=== PATIENT | male | born 1970 | race Caucasian/White ===

== ENCOUNTER 2017-04-07 15:19 | Emergency (ER) | payer MEDICARE, MEDICAID ==
--- NOTE | 2017-04-18 17:59 | ER ---
ADMIT: 04/07/2017 RM/LOC: ER [facility] MR#: [id number] [address] [address] [place] [address] Emergency Room Report SEX: M AGE: 47 : 1970 DATE: 04/07/2017 HISTORY OF PRESENT ILLNESS: The patient is a 47-year-old male, who presents to the emergency room with urinary retention that happened yesterday and he had a urinary catheter in place, and the reason for that was a chronic narcotic use causing constipation, putting pressure, he was unable to pee. So, last night Dr. Robert ordered a catheter and sent him home with followup. He presents now stating that he wants the catheter out because it is hurting. REVIEW OF SYSTEMS: Negative. PAST MEDICAL HISTORY: Cardiac disease, CAD with bypass surgery and stents. SOCIAL HISTORY: He is a smoker, half a pack a day. PHYSICAL EXAMINATION: VITAL SIGNS: Blood pressure 153/85, heart rate 95, temp 99.9, O2 sats 97%. GASTROINTESTINAL: Low abdominal tenderness. Catheter urine seems to be within normal color and he has about 4 mL in the bag. EXTREMITIES: Nontender. SKIN: Good color and turgor. NEURO: Oriented x4. He is advised that the catheter will be removed by nurse but if pain continues and urinary retention continues, he needs to come back, the catheter will be placed back again. CLINICAL IMPRESSION: Urinary catheter removal secondary to urinary retention. FLORES Delacruz / Kevin Winkler MD / modl JOB #: [id number] CC: Kevin Winkler MD, Attending Physician Royce Carrasco MD, Family Physician
== END 2017-04-07 16:40 | disposition home or self-care (01) ==
LOC: ER 15:19
DX: R33.9 Retention of urine, unspecified (principal); Z43.6 Encounter for attention to other artificial openings of urinary tract; F17.210 Nicotine dependence, cigarettes, uncomplicated; I10 Essential (primary) hypertension; Z95.1 Presence of aortocoronary bypass graft; Z95.5 Presence of coronary angioplasty implant and graft

== ENCOUNTER 2017-04-16 06:48 | Emergency (ER) | payer MEDICARE, MEDICAID ==
--- NOTE | 2017-04-16 16:46 | ER ---
ADMIT: 04/16/2017 RM/LOC: ER [facility] MR#: [id number] [id number] [facility] [address] [address] [place] [address] Emergency Room Report SEX: M AGE: 47 : 1970 DATE: 04/16/2017 ADDENDUM: This 47-year-old white male coming with back pain. I think this is recurrent, chronic. X-ray does show old compression fracture in 1988. He also has degenerative joint disease on top of this. He had been on Lortab in the past, however, then he developed urinary retention, constipation and I told him we cannot follow him here, so he needs to be followed up with the pain doctor. We did give him 2 Lortab here, 20 of Decadron IM and then I sent him home with 4. He is getting his SSI disability as well as his Medicare, Medicaid up again and qualified for it. He should follow up in a week. CONDITION ON DISCHARGE: Fair. Tr Joshi MD/ sheela JOB #: [id number] CC: Aurelio Cabello MD, Attending Physician Susan Solorio MD, Family Physician
== END 2017-04-16 09:15 | disposition home or self-care (01) ==
LOC: ER 06:48
DX: S39.012A Strain of muscle, fascia and tendon of lower back, initial encounter (principal); M84.48XA Pathological fracture, other site, initial encounter for fracture; M47.896 Other spondylosis, lumbar region; I10 Essential (primary) hypertension; I25.10 Atherosclerotic heart disease of native coronary artery without angina pectoris; F17.210 Nicotine dependence, cigarettes, uncomplicated; Z87.442 Personal history of urinary calculi; Z90.49 Acquired absence of other specified parts of digestive tract; Z79.82 Long term (current) use of aspirin; X58.XXXA Exposure to other specified factors, initial encounter